=== PATIENT | female | born 1995 | race Caucasian/White ===

== ENCOUNTER 2022-04-13 10:06 | Emergency (ER) | payer OTHER, SELFPAY ==
[2022-04-13 10:19] VITALS: BP 127/70; PULSE 86; RESP 18; TEMP 36.1; O2SAT 100
--- NOTE | 2022-04-13 12:06 | ED.GENADULT ---
HPI - General Adult General Chief complaint: Unspecified Stated complaint: needle stick Time Seen by Provider: 04/13/22 11:25 Source: patient Mode of arrival: ambulatory Limitations: no limitations History of Present Illness HPI narrative: This is a 26-year-old female that presents to the emergency department for a needlestick injury sustained just prior to arrival. 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 She sustained a cut to the right thumb with a 15 blade. Reports it was used on the patient, but there was no blood on the blade. The patient is not known to have any blood-borne illnesses. She cleaned the wound with peroxide and applied antibiotic ointment and a bandage. Related Data Allergies Allergy/AdvReac Type Severity Reaction Status Date / Time amoxicillin Allergy Rash Verified 04/13/22 11:28 Review of Systems Review of Systems: CONSTITUTIONAL: Denies fever SKIN: Reports superficial laceration All systems reviewed & are unremarkable except as noted in HPI and below PMFSH Past Medical History Medical History (Updated 04/13/22 @ 12:57 by Rubia Llamas PA-C) No active medical problems Social History Social History (Updated 04/13/22 @ 12:08 by Rubia Llamas PA-C) Smoking status: Never smoker Substance use: never Exam Narrative: GENERAL: Well-appearing, well-nourished, and in no acute distress. HEAD: Normocephalic, atraumatic. EYES: EOMI. EXTREMITIES: Normal range of motion. No edema. Very small jemima noted to the right thumb distal phalanx SKIN: Warm, dry, no rash. NEURO: No focal deficits. Alert and oriented x3. PSYCH: Normal mood and affect Course Course Emergency Course: Patient was updated on work-up. Instructed she will need to follow-up with PCP for further blood work to continue to monitor. She was in agreement with plan. Vital Signs Vital signs: Vital Signs Temperature 97.0 F L 04/13/22 10:19 Pulse Rate 86 04/13/22 10:19 Respiratory Rate 18 04/13/22 10:19 Blood Pressure 127/70 04/13/22 10:19 Pulse Oximetry 100 04/13/22 10:19 Oxygen Delivery Room Air 04/13/22 10:19 Temperature 97.0 F L 04/13/22 10:19 Pulse Rate 86 04/13/22 10:19 Respiratory Rate 18 04/13/22 10:19 Blood Pressure 127/70 04/13/22 10:19 Pulse Oximetry 100 04/13/22 10:19 Oxygen Delivery Room Air 04/13/22 10:19 Medical Decision Making MDM Narrative Medical decision making narrative: Patient presents to the emergency department after a needlestick injury at work today. The patient was not known to have any blood-borne illnesses. I did obtain baseline labs as well as needlestick profile here. Patient was updated on work-up. Instructed she will need to follow-up with PCP for further blood work to continue to monitor. She was in agreement with plan. She was given warnings to return to the ER Vital Signs Vital Signs: Vital Signs Temperature 97.0 F L 04/13/22 10:19 Pulse Rate 86 04/13/22 10:19 Respiratory Rate 18 04/13/22 10:19 Blood Pressure 127/70 04/13/22 10:19 Pulse Oximetry 100 04/13/22 10:19 Oxygen Delivery Room Air 04/13/22 10:19 Temperature 97.0 F L 04/13/22 10:19 Pulse Rate 86 04/13/22 10:19 Respiratory Rate 18 04/13/22 10:19 Blood Pressure 127/70 04/13/22 10:19 Pulse Oximetry 100 04/13/22 10:19 Oxygen Delivery Room Air 04/13/22 10:19 Lab Data Lab results reviewed: Yes I reviewed the patient's lab results. 04/13/22 12:02 04/13/22 12:02 Labs: Lab Results 04/13/22 04/13/22 04/13/22 Range/Units 11:31 12:02 12:02 WBC 8.7 (4.5-10.0) K/mm3 RBC 4.51 (4.2-5.4) M/mm3 Hgb 13.7 (12.0-15.0) g/dL Hct 39.9 (37.0-47.0) % MCV 88.5 (80-100) fl MCH 30.4 (26-34) pg MCHC 34.3 (32-36) g/dl RDW 12.8 (11.5-14.5) % Plt Count 223 (150-375) k/mm3 MPV 10.8 H (7.4-10.4) fl Immature Gran % (Auto) 0.3 (0-0.5) % Neut % (Auto) 64.3 (45.5-73.1)
[2022-04-13 12:11] LABS: Basophils Absolute Auto 0.1 K/mm3 (0.0-0.1); Basophils Percent Auto 0.7 % (0.2-1.2); Eosinophils Absolute Auto 0.1 K/mm3 (0-0.3); Eosinophils Percent Auto 1.3 % (0-4.4); Hematocrit 39.9 % (37.0-47.0); Hemoglobin 13.7 g/dL (12.0-15.0); Immature Granulocyte Absolute 0.03 K/mm3 (0.00-0.031); Immature Granulocyte Percent A 0.3 % (0-0.5); Lymphocytes Absolute Auto 2.35 K/mm3 (0.9-3.2); Lymphocytes Percent Auto 26.9 % (18.3-44.2); Mean Corpuscular HGB Conc 34.3 g/dl (32-36); Mean Corpuscular Hemoglobin 30.4 pg (26-34); Mean Corpuscular Volume 88.5 fl (80-100); Mean Platelet Volume 10.8 fl (7.4-10.4); Monocytes Absolute Auto 0.6 K/mm3 (0.1-0.6); Monocytes Percent Auto 6.5 % (2.6-8.5); Neutrophils Absolute Auto 5.6 K/mm3 (1.3-6.7); Neutrophils Percent Auto 64.3 % (45.5-73.1); Platelet Count Result 223 k/mm3 (150-375); Red Blood Count 4.51 M/mm3 (4.2-5.4); Red Cell Distribution Width 12.8 % (11.5-14.5); White Blood Count 8.7 K/mm3 (4.5-10.0)
[2022-04-13 12:20] LABS: Alanine Aminotransferase 20 U/L (6-35); Albumin Level 4.8 g/dL (3.5-5.1); Alkaline Phosphatase 60 U/L (38-126); Anion Gap 6 mmol/L (8-16); Aspartate Amino Transferase 24 U/L (14-36); Bilirubin,Total 0.5 mg/dL (0.2-1.3); Blood Urea Nitrogen 11 mg/dL (7-17); Calcium 8.9 mg/dL (8.4-10.2); Carbon Dioxide 27 mmol/L (22-30); Chloride 102 mmol/L (98-107); Estimated CRCL calculation 107 ml/min; Estimated Glomerular Filt Rate > 60; Glucose 79 mg/dL (65-110); Potassium 3.7 mmol/L (3.4-5.0); Sodium 135 mmol/L (137-145)
[2022-04-13 12:51] LABS: HIV 1/2 Ab P24 Ag Result Negative (Negative)
[2022-04-13 13:00] LABS: Hepatitis C Virus Antibody Negative (Negative)
[2022-04-13 14:27] LABS: Hepatitis B Surface Anti Res Indeterminate
== END 2022-04-13 13:48 | disposition home or self-care (01) ==
PROVIDERS: Emergency Provider Physician Assistant
DX: S61.011A Laceration without foreign body of right thumb without damage to nail, initial encounter (principal); W26.8XXA Contact with other sharp object(s), not elsewhere classified, initial encounter; Y93.F9 Activity, other caregiving
CPT/HCPCS: 36415; 80053; 85025; 86703; 86706; 86803; 99283; G0432

== ENCOUNTER 2022-05-04 15:52 | Outpatient (CLI) | payer SELFPAY ==
[2022-05-04 19:25] LABS: Hepatitis B Surface Antigen Negative (Negative)
[2022-05-04 19:31] LABS: HAV RESULT Negative (Negative); Hepatitis B Core IgM Result Negative (Negative)
[2022-05-04 19:43] LABS: Hepatitis C Virus Antibody Negative (Negative)
== END 2022-05-04 15:53 | disposition home or self-care (01) ==
LOC: ANHGOSHLAB 15:53
PROVIDERS: PCP Family Medicine; Visit Provider Family Medicine
DX: Z77.21 Contact with and (suspected) exposure to potentially hazardous body fluids (principal)
CPT/HCPCS: 36415; 80074

== ENCOUNTER 2023-10-10 15:39 | Emergency (ER) | payer BC, SELFPAY ==
--- NOTE | ~2023-10-10 | US_ITS ---
EXAMINATION: US pelvic complete w TV DATE: 10/10/2023 22:57 INDICATION: left ovarian cyst TECHNIQUE: Multiple transabdominal and endovaginal sonographic images of the pelvis were obtained. COMPARISON: CT abdomen pelvis, same date FINDINGS: Uterus: 7.9 x 3.8 x 5.4 cm. Endometrial complex measures 9 mm. Right Ovary: 3.8 x 2.5 x 1.8 cm. Vascular flow is present. No adnexal mass. Left Ovary: 5.2 x 4.2 x 4.8 cm. Vascular flow is present. 4.4 x 3.7 x 4.0 smoothly marginated, left o varian lesion, somewhat nodular echogenicity along the anterior wall with the suggestion of an incomp lete, irregular septum and no internal color flow. This lesion may represent a hemorrhagic cyst with a band of internal clot anechoic fluid from hemorrhage that has lysed more completely, how ever other lesions are not entirely excluded. There is physiologic volume free fluid in the pelvis. IMPRESSION: 4.4 cm complex left ovarian cyst, possibly representing an atypical hemorrhagic cyst. Recommend pelvi c ultrasound follow-up in 8 weeks to confirm resolution. If the lesion persists, pelvic MRI and gynec ology consultation may be necessary for further evaluation at that time. Reviewed, dictated and finalized at location K. IMPRESSION: 4.4 cm complex left ovarian cyst, possibly representing an atypical hemorrhagic cyst. Recommend pelvic ultrasound follow-up in 8 weeks to confirm resolution. If the lesion persists, pelvic MRI and gynecology consultation may be necessary for further evaluation at that time.
--- NOTE | ~2023-10-10 | CT_ITS ---
EXAMINATION: CT abdomen pelvis w con DATE: 10/10/2023 21:22 INDICATION: low back pain, UTI TECHNIQUE: Computed tomography (CT) of the abdomen and pelvis was performed with 100 mL Omnipaque-350 intravenous contrast. Automated exposure control and iterative reconstruction technique were employe d. The dose-length product was 526.93 mGy-cm. COMPARISON: None. FINDINGS: Lower thorax: Unremarkable Liver: Normal. Biliary/Gallbladder: Gallbladder is normal. No bile duct dilation. Pancreas: No mass or duct dilation. Spleen: Normal. Adrenals:No mass. Kidneys: No suspicious mass, obstructing stone, or hydronephrosis. GI tract: No small or large bowel dilation. Normal appendix. Mesentery/Peritoneum: No ascites, mass, or free air. Retroperitoneum: No mass. Pelvis: Normal urinary bladder. Normal right ovary and uterus. 5.5 cm low density left ovarian lesion , internal density of 38 Hounsfield units. Small volume free pelvic fluid, within physiologic range. Surgical clips in the deep pelvis and right adnexa. Soft Tissues: Soft tissues and body wall unremarkable. Bones: No acute osseous finding. IMPRESSION: 5.5 cm left ovarian lesion, possible proteinaceous or hemorrhagic cyst, consider pelvic ultrasound fo r further evaluation. Reviewed, dictated and finalized at location K. IMPRESSION: 5.5 cm left ovarian lesion, possible proteinaceous or hemorrhagic cyst, conside r pelvic ultrasound for further evaluation.
[2023-10-10 16:22] VITALS: BP 126/79; PULSE 92; RESP 15; TEMP 36.5; O2SAT 100
[2023-10-10 17:14] VITALS: RESP 20; O2SAT 100
--- NOTE | 2023-10-10 18:11 | ED.GENADULT ---
HPI - General Adult General Chief complaint: Unspecified Stated complaint: pain to tailbone Time Seen by Provider: 10/10/23 17:16 Source: patient Mode of arrival: ambulatory Limitations: no limitations History of Present Illness HPI narrative: This is a 27 year old female that presents to the ER for low back pain. Ongoing over the last week. No known injury or trauma. Pain in the middle of her low back. Reports it hurts to sit down and with ambulation. She has been treated for a UTI recently with Cephalexin. She just finished this antibiotic. Does believe the dysuria has subsided. Denies fever, abdominal pain, vomiting, hematuria. Related Data Home Medications Medication Instructions Recorded Confirmed No Home Medications 05/04/22 05/04/22 Allergies Allergy/AdvReac Type Severity Reaction Status Date / Time amoxicillin Allergy Rash Verified 10/10/23 17:19 Review of Systems Review of Systems: CONSTITUTIONAL: Denies fever GASTROINTESTINAL: Denies abdominal pain, nausea, vomiting GENITOURINARY: Denies dysuria or hematuria. MUSCULOSKELETAL: Reports back pain All systems reviewed & are unremarkable except as noted in HPI and below PMFSH Past Medical History Medical History No active medical problems Family History Family History Grandparent Breast cancer Father Heart disease Diabetes mellitus Social History Social History Smoking status: Current every day smoker Tobacco type: e-cigarettes/vaping Alcohol intake: current Drinks per week: 1 Substance use: never Lack of Transportation: No Lack of Food: Never True Current Housing: I Have Housing Concerned About Future Housing: No Difficulty Paying Gas/Electric Bills: No Difficulty Paying for Meds: No Currently Unemployed: No Education: Trade/Vocational Certificate Difficulty w/ Childcare or Family Care: No Exam Narrative: GENERAL: Well-appearing, well-nourished, and in no acute distress. HEAD: Normocephalic, atraumatic. EYES: EOMI. CHEST: No respiratory distress. HEART: Regular rate EXTREMITIES: Normal range of motion. No edema. SKIN: Warm, dry, no rash. NEURO: No focal deficits. Alert and oriented x3. Normal gait PSYCH: Normal mood and affect BACK: No redness or swelling noted Course Course Emergency Course: Patient updated on workup and agrees with plan of care Vital Signs Vital signs: Vital Signs Temperature 97.7 F 10/10/23 16:22 Pulse Rate 92 10/10/23 16:22 Respiratory Rate 15 10/10/23 16:22 Blood Pressure 126/79 10/10/23 16:22 Pulse Oximetry 100 10/10/23 16:22 Oxygen Delivery Room Air 10/10/23 16:22 Temperature 98.5 F 10/10/23 23:31 Pulse Rate 81 10/10/23 23:31 Respiratory Rate 16 10/10/23 23:31 Blood Pressure 119/89 10/10/23 23:31 Pulse Oximetry 98 10/10/23 23:31 Oxygen Delivery Room Air 10/10/23 16:22 Medical Decision Making MDM Narrative Medical decision making narrative: patient presents to the emergency department for low back pain. Reporting recently being treated for a UTI. She is afebrile and nontoxic appearing. Her vitals are stable. CBC with mild leukocytosis to 11.3. Metabolic panel without concerning findings. He UA with 2+ leuk esterase 6-10 white blood cells. Also shows squamous epithelial cells. Patient does report her dysuria has resolved. Will let this go for culture. CT abdomen and pelvis shows a 5.5 cm left ovarian cyst, recommend pelvic ultrasound. Pelvic ultrasound shows 4.4 cm left ovarian cyst with normal vascular flow to the ovaries. Recommend pelvic ultrasound follow-up in 8 weeks. Patient was updated on her workup and agrees with plan of care. 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 She was given warnings to return to
[2023-10-10 18:42] LABS: Basophils Percent Auto 0.3 % (0.2-1.2); Eosinophils Absolute Auto 0.1 K/mm3 (0-0.3); Eosinophils Percent Auto 1.1 % (0-4.4); Hematocrit 40.5 % (37.0-47.0); Hemoglobin 13.8 g/dL (12.0-15.0); Immature Granulocyte Absolute 0.05 K/mm3 (0.00-0.031); Immature Granulocyte Percent A 0.4 % (0-0.5); Lymphocytes Absolute Auto 2.49 K/mm3 (0.9-3.2); Mean Corpuscular HGB Conc 34.1 g/dl (32-36); Mean Corpuscular Hemoglobin 30.3 pg (26-34); Mean Corpuscular Volume 88.8 fl (80-100); Mean Platelet Volume 10.6 fl (7.4-10.4); Monocytes Absolute Auto 0.7 K/mm3 (0.1-0.6); Monocytes Percent Auto 6.1 % (2.6-8.5); Neutrophils Absolute Auto 7.9 K/mm3 (1.3-6.7); Neutrophils Percent Auto 70.1 % (45.5-73.1); Platelet Count Result 225 k/mm3 (150-375); Red Blood Count 4.56 M/mm3 (4.2-5.4); White Blood Count 11.3 K/mm3 (4.5-10.0)
[2023-10-10 18:46] LABS: Add Urine Microscopic? YES; Appearance Urine Clear (Clear); Bacteria Urine None Seen /hpf; Bilirubin Urine Negative (Negative); Blood Urine Negative (Negative); Color Urine Yellow (Yellow); Glucose Urine UA Negative (Negative); Ketones Urine Negative (Negative); Leukocyte Esterase Ur 2+ LEU/UL (Negative); Nitrate Urine Negative (Negative); Non Pathogenic Casts 0-2; Protein Urine Negative (Negative); RBC Urine 0-2 /hpf (0-2); Specific Grav Ur 1.018 (1.001-1.035); Squamous Epithelial Cell Urine Occasional /hpf (Few); pH Urine 6.5 (5.0-9.0)
[2023-10-10] MEDS: ACETAMINOPHEN 500 MG TABLET 1000 MG PO (18:50)
[2023-10-10 18:52] LABS: Anion Gap 14 mmol/L (4-12); Blood Urea Nitrogen 17 mg/dL (7-17); Calcium 9.4 mg/dL (8.4-10.2); Carbon Dioxide 22 mmol/L (22-30); Chloride 102 mmol/L (98-107); Estimated CRCL calculation 107 ml/min; Estimated Glomerular Filt Rate > 60; Glucose 91 mg/dL (65-110); Potassium 3.8 mmol/L (3.4-5.0); Sodium 138 mmol/L (137-145)
[2023-10-10 18:54] LABS: BEDSIDEPREGUCG Negative
[2023-10-10] MEDS: SODIUM CHLORIDE 0.9% IV 1,000 ML 999 ML IV CONT (22:28)
[2023-10-10 22:30] VITALS: BP 124/89; PULSE 79; RESP 18; TEMP 36.8; O2SAT 97
[2023-10-10 23:31] VITALS: BP 119/89; PULSE 81; RESP 16; TEMP 36.9; O2SAT 98
== END 2023-10-10 23:51 | disposition home or self-care (01) ==
PROVIDERS: Emergency Provider Physician Assistant; PCP Family Medicine
DX: M54.50 Low back pain, unspecified (principal); N83.202 Unspecified ovarian cyst, left side; R82.81 Pyuria; F17.290 Nicotine dependence, other tobacco product, uncomplicated
CPT/HCPCS: 36415; 74177; 76830; 76856; 80048; 81001; 81025; 85025; 87086; 96360; 99284; A9270; J7030; Q9967